=== PATIENT | female | born 1950 | race Caucasian/White ===

== ENCOUNTER 2022-04-24 15:55 | Outpatient (CLI) | payer MEDICARE, SELFPAY ==
--- NOTE | 2022-04-24 16:15 | CRLHL7_ITS ---
For Patients: As a result of the Century Cures Act, medical imaging exams and procedure reports are released immediately into your electronic medical record. You may view this report before your referring provider. If you have questions, please contact your health care provider. BILATERAL SCREENING MAMMOGRAM WITH COMPUTER-AIDED DETECTION AND TOMOSYNTHESIS TECHNIQUE: CC and MLO views were obtained. These mammographic images have been obtained using full-field digital technique. These mammographic images were interpreted with the benefit of computer-aided detection. Breast Tomosynthesis was used in this interpretation. COMPARISON FILM: 04/07/2021, 04/06/2020. FINDINGS: The breasts are heterogeneously dense, which may obscure small masses IMPRESSION: There is no radiographic evidence for malignancy. ASSESSMENT: BI-RADS Category 1: Negative RECOMMENDATION: Routine screening mammogram in 1 year. A lay language report of this examination will be provided to the patient. Aj Mari M.D. Diagnostic Radiologist [email or web address] MEAGHAN/Dictated by: Aj Mari MD @ 04/25/2022 9:31:00 AM (Electronically Signed)
== END 2022-04-24 15:56 | disposition home or self-care (01) ==
LOC: MAMMO 15:56
PROVIDERS: PCP Family Medicine; Visit Provider Family Medicine
DX: Z12.31 Encounter for screening mammogram for malignant neoplasm of breast (principal); R92.2 Inconclusive mammogram
CPT/HCPCS: 77063; 77067

== ENCOUNTER 2022-05-09 10:26 | Outpatient (CLI) | payer MEDICARE, SELFPAY ==
[2022-05-09 21:18] LABS: Albumin* 4.9 g/dL (3.3-5.0); Chloride* 102 mmol/L (96-114); Potassium* 4.7 mmol/L (3.6-5.1); Sodium* 140 mmol/L (135-149)
[2022-05-09 21:20] LABS: Bilirubin Total* 0.8 mg/dL (0.1-1.5); Carbon Dioxide* 25 mmol/L (20-32); Cholesterol* 177 mg/dL (90-199); Creatinine* 0.8 mg/dL (0.5-1.5); Estimated Glomerular Filt Rate 79 ml/min
[2022-05-09 21:21] LABS: Alanine Aminotransferase* 33 U/L (4-35); Alkaline Phosphatase* 86 U/L (40-150); Aspartate Amino Transferase* 36 U/L (12-35); Blood Urea Nitrogen* 20 mg/dL (7-30); Calcium* 9.8 mg/dL (8.4-10.6); Glucose* 100 mg/dL (60-115); Total Protein* 7.9 g/dL (6.0-8.3); Triglycerides* 132 mg/dL (40-149)
[2022-05-09 21:22] LABS: HDL Cholesterol* 61 mg/dL (>=50); LDL Cholesterol Calculated 90 mg/dL (<100)
[2022-05-09 23:33] LABS: Vitamin D 25 Hydroxy* 46 ng/mL (30-80)
== END 2022-05-09 10:27 | disposition home or self-care (01) ==
PROVIDERS: PCP Family Medicine; Visit Provider Physician Assistant Medical
DX: Z00.00 Encounter for general adult medical examination without abnormal findings (principal); E55.9 Vitamin D deficiency, unspecified; E78.5 Hyperlipidemia, unspecified; F41.9 Anxiety disorder, unspecified
CPT/HCPCS: 80053; 80061; 82306; 84443

== ENCOUNTER 2022-06-01 07:44 | Outpatient (CLI) | payer MEDICARE, SELFPAY ==
--- NOTE | 2022-06-01 08:59 | W.ANESCHARGE ---
Anesthesia Charges Start Date/Time Anesthesia Start Date: 06/01/22 Anesthesia Start Time: 08:30 Stop Date/Time Anesthesia Stop Date: 06/01/22 Anesthesia Stop Time: 09:00 Summary Emergency: No Extremes of Age: Over 71-CPT [id number]
--- NOTE | 2022-06-01 09:16 | W.ANESCHARGE ---
Anesthesia Charges Start Date/Time Anesthesia Start Date: 06/01/22 Anesthesia Start Time: 08:30 Stop Date/Time Anesthesia Stop Date: 06/01/22 Anesthesia Stop Time: 09:00 Summary Emergency: No
== END 2022-06-01 07:45 | disposition home or self-care (01) ==
LOC: OP CLINIC 07:44
PROVIDERS: PCP Internal Medicine; Visit Provider Internal Medicine
DX: Z12.11 Encounter for screening for malignant neoplasm of colon (principal); K63.5 Polyp of colon; K57.30 Diverticulosis of large intestine without perforation or abscess without bleeding; Z86.010 Personal history of colon polyps
CPT/HCPCS: 00811; 45380; 88305; 99100; J2704

== ENCOUNTER 2022-06-06 14:54 | Outpatient (CLI) | payer MEDICARE, SELFPAY ==
--- NOTE | 2022-06-06 15:00 | CRLHL7_ITS ---
For Patients: As a result of the Century Cures Act, medical imaging exams and procedure reports are released immediately into your electronic medical record. You may view this report before your referring provider. If you have questions, please contact your health care provider. DXA BONE MINERAL DENSITY STUDY Current height (in): 66.0. Weight (lb): 149.0. Menopause age: 46. Ethnicity: White. Reason for exam: Screening. History of osteopenia. 1. Have you had a previous hip or vertebral fracture? No. 2. Have you had any fractures during your adult life which did not result from significant trauma (e.g., auto accident)? No. 3. Did either of your parents have a hip fracture? No. 4. Do you smoke? No. 5. Have you ever taken Glucocorticoids? No. 6. Do you have rheumatoid arthritis? Yes. 7. Do you have secondary osteoporosis? No. 8. Do you drink 3 or more alcoholic drinks per day? No. 9. Are you being treated for osteoporosis? No. 10. Have you ever taken any of the following medications: Actonel, Evista, Fosamax, Miacalcin, Reclast, Boniva, Forteo, HRT (i.e. estrogen/hormone therapy), Protelos, Prolia, Vitamin D, Calcium, other ??? please specify. ANSWER: Yes, Fosamax, vitamin D, calcium. 11. Do you have any of the following medical conditions: Anorexia or bulimia, asthma or emphysema, end stage renal disease, hyperparathyroidism, any seizure disorders, cancer, inflammatory bowel diseases, hysterectomy, other ??? please specify. ANSWER: Yes, inflammatory bowel disease. 12. What was your maximum height (inches)? 66. 13. Do you perform weight bearing exercise regularly? Yes. 14. Do you regularly consume dairy products? Yes. 15. Do you drink caffeinated beverages? No. If female: 16. At what age did your period start? 17. 17. Are you premenopausal? No. 18. How many full term pregnancies have you had? 0. 19. Have you ever missed your period for more than 6 months in a row (not including or menopause)? No. TECHNIQUE: Bone mineral density study was performed using the [employer]. FINDINGS: The results of the study expressed as bone mineral density (BMD) are as follows: Lumbar spine L1 to L4: BMD: 1.032 g/cm2. T-score: -0.1. Z-score: 2.0. Neck Right: BMD: 0.778 g/cm2. T-score: -0.6. Z-score: 1.2. Total Right: BMD: 0.825 g/cm2. T-score: -1.0. Z-score: 0.6. Radius Left 33%: BMD: 0.690 g/cm2. T-score: -0.1. Z-score: 2.1. IMPRESSION: Normal bone density. Aj aMri M.D. Diagnostic Radiologist [email or web address] Transcribed: 9:56 [address] DW/Dictated by: Aj Mari MD @ 06/07/2022 8:57:00 AM (Electronically Signed)
== END 2022-06-06 14:55 | disposition home or self-care (01) ==
LOC: RAD 14:55
PROVIDERS: PCP Internal Medicine; Visit Provider Physician Assistant Medical
DX: Z13.820 Encounter for screening for osteoporosis (principal); Z78.0 Asymptomatic menopausal state; E55.9 Vitamin D deficiency, unspecified
CPT/HCPCS: 77080

== ENCOUNTER 2023-04-18 10:30 | Outpatient (RCR) | payer MEDICARE, SELFPAY | END 2023-08-16 23:59 | disposition home or self-care (01) | PROVIDERS: PCP Internal Medicine; Visit Provider Family Medicine | DX: M25.551 Pain in right hip (principal); M54.16 Radiculopathy, lumbar region; M48.061 Spinal stenosis, lumbar region without neurogenic claudication; M70.61 Trochanteric bursitis, right hip; M54.50 Low back pain, unspecified; M62.81 Muscle weakness (generalized); R26.2 Difficulty in walking, not elsewhere classified; Z51.89 Encounter for other specified aftercare | CPT/HCPCS: 97110; 97140; 97162 ==

== ENCOUNTER 2023-04-26 11:12 | Outpatient (CLI) | payer MEDICARE, SELFPAY ==
--- NOTE | 2023-04-26 11:30 | CRLHL7_ITS ---
For Patients: As a result of the Century Cures Act, medical imaging exams and procedure reports are released immediately into your electronic medical record. You may view this report before your referring provider. If you have questions, please contact your health care provider. BILATERAL SCREENING MAMMOGRAM WITH COMPUTER-AIDED DETECTION AND TOMOSYNTHESIS TECHNIQUE: CC and MLO views were obtained. These mammographic images have been obtained using full-field digital technique. These mammographic images were interpreted with the benefit of computer-aided detection. Breast Tomosynthesis was used in this interpretation. COMPARISON FILM: 04/24/22, 04/07/21, 04/06/20. FINDINGS: There are scattered areas of fibroglandular density IMPRESSION: There is no radiographic evidence for malignancy. ASSESSMENT: BI-RADS Category 1: Negative RECOMMENDATION: Routine screening mammogram in 1 year. A lay language report of this examination will be provided to the patient. Aj Mari M.D. Diagnostic Radiologist [email or web address] MEAGHAN/Dictated by: Aj Mari MD @ 04/26/2023 11:58:00 AM (Electronically Signed)
== END 2023-04-26 11:13 | disposition home or self-care (01) ==
LOC: MAMMO 11:13
PROVIDERS: PCP Internal Medicine; Visit Provider Physician Assistant Medical
DX: Z12.31 Encounter for screening mammogram for malignant neoplasm of breast (principal)
CPT/HCPCS: 77063; 77067

== ENCOUNTER 2023-06-18 10:30 | Outpatient (RCR) | payer MEDICARE, SELFPAY | END 2023-09-16 12:32 | disposition home or self-care (01) | PROVIDERS: PCP Internal Medicine; Visit Provider Nurse Practitioner | DX: M54.16 Radiculopathy, lumbar region (principal); M48.061 Spinal stenosis, lumbar region without neurogenic claudication; M70.61 Trochanteric bursitis, right hip; Z96.641 Presence of right artificial hip joint; M62.81 Muscle weakness (generalized); R26.2 Difficulty in walking, not elsewhere classified; M54.50 Low back pain, unspecified; Z51.89 Encounter for other specified aftercare | CPT/HCPCS: 97110; 97161 ==

== ENCOUNTER 2023-07-25 10:23 | Outpatient (CLI) | payer MEDICARE, SELFPAY | END 2023-07-25 10:24 | disposition home or self-care (01) | PROVIDERS: PCP Internal Medicine; Visit Provider Physician Assistant Medical | DX: Z00.00 Encounter for general adult medical examination without abnormal findings (principal); E78.5 Hyperlipidemia, unspecified; E55.9 Vitamin D deficiency, unspecified | CPT/HCPCS: 80053; 80061; 82306; 84443 ==

== ENCOUNTER 2023-09-19 10:54 | Outpatient (CLI) | payer MEDICARE, SELFPAY | END 2023-09-19 10:55 | disposition home or self-care (01) | LOC: RAD 10:55 | PROVIDERS: PCP Physician Assistant Medical; Visit Provider Physician Assistant Medical | DX: I51.7 Cardiomegaly (principal); I35.1 Nonrheumatic aortic (valve) insufficiency; I34.0 Nonrheumatic mitral (valve) insufficiency | CPT/HCPCS: 93306 ==

== ENCOUNTER 2024-01-20 22:21 | Outpatient (REF) | payer MEDICARE, SELFPAY | END 2024-01-20 22:22 | disposition home or self-care (01) | LOC: NPINS 22:21 | PROVIDERS: PCP Physician Assistant Medical; Visit Provider Family Medicine | DX: Z11.9 Encounter for screening for infectious and parasitic diseases, unspecified (principal); Z01.818 Encounter for other preprocedural examination | CPT/HCPCS: 87081 ==

== ENCOUNTER 2024-01-30 10:45 | Outpatient (RCR) | payer MEDICARE, SELFPAY | END 2024-01-30 11:27 | disposition home or self-care (01) | PROVIDERS: PCP Physician Assistant Medical; Visit Provider Orthopaedic Surgery | DX: M70.61 Trochanteric bursitis, right hip (principal); M70.62 Trochanteric bursitis, left hip; Z51.89 Encounter for other specified aftercare | CPT/HCPCS: 97110; 97140; 97162 ==

== ENCOUNTER 2024-03-10 12:30 | Outpatient (RCR) | payer MEDICARE, SELFPAY | END 2024-07-08 23:59 | disposition home or self-care (01) | PROVIDERS: PCP Physician Assistant Medical; Visit Provider Orthopaedic Surgery | DX: Z01.818 Encounter for other preprocedural examination (principal); M17.12 Unilateral primary osteoarthritis, left knee; Z51.89 Encounter for other specified aftercare | CPT/HCPCS: 97110; 97112; 97162 ==

== ENCOUNTER 2024-04-25 10:56 | Emergency (ER) | payer MEDICARE, SELFPAY ==
[2024-04-25 11:08] VITALS: BP 132/78; PULSE 104; RESP 16; TEMP 36.8; O2SAT 96; BMI 24.2
--- NOTE | 2024-04-25 11:37 | ED_ITS ---
HPI - General Adult General Chief complaint: Ear/Nose/Throat Problem Stated complaint: Sinus infection Time Seen by Provider: 04/25/24 11:15 Source: patient Mode of arrival: ambulatory Limitations: no limitations History of Present Illness HPI narrative: 71-year-old female presents the emergency department with 5 days of ?sinus infection?. No fevers. Thickening of mucus this morning. Has not tried any leum-vjn-puxfadc treatments. Reports that she was at a family event 2 days prior to symptoms starting and a preschool age child had a ?snotty nose?. Mother had similar symptoms and was preparing food. Patient suspects this may have been how she had the illness transmitted to her. Patient's had similar symptoms that started the same day as hers and are starting to resolve. Patient reports that she tends to get sinus infections frequently but the last was about a year ago. She is not immunocompromised. She says that she used to get them more frequently but less often now. No recent use of antibiotics. No pertinent travel. She is not immunocompromised. No other systemic symptoms like GI changes, shortness of breath, chest congestion. No trauma or injury, no prior history of sinus surgeries. Past medical history is notable for osteopenia, low back pain, hyperlipidemia. Medications reviewed, accurate. Allergy to cephalosporins, not penicillins. Nonsmoker. ROS is notable for a little bit of your pressure in the sinus symptoms as described above, otherwise denies times 12 systems. Related Data Home Medications ?Medication ?Instructions ?Recorded ?Confirmed ascorbic acid (vitamin C) 1,000 mg 1 g PO Q6H 05/09/22 01/20/24 tablet cholecalciferol (vitamin D3) 125 125 mcg PO QDAY 05/09/22 01/20/24 mcg (5,000 unit) capsule multivitamin with iron (Daily 2 tab PO QDAY 05/09/22 01/20/24 Multiple Vitamins with Iron tablet) Previous Rx's ?Medication ?Instructions ?Recorded rosuvastatin 10 mg tablet 10 mg PO QDAY #90 tabs 07/26/23 gabapentin 300 mg capsule 300 mg PO 3XD #270 caps 03/09/24 amoxicillin 875 mg-potassium 1 tab PO BID #20 tabs 04/25/24 clavulanate 125 mg tablet ipratropium bromide 21 mcg (0.03 2 spray intranasal TID #30 mL 04/25/24 %) nasal spray prednisone 20 mg tablet 20 mg PO DAILY #5 tabs 04/25/24 Allergies Allergy/AdvReac Type Severity Reaction Status Date / Time Cephalosporins Allergy Mild Itch Verified 04/25/24 11:08 cefuroxime Allergy Unknown Verified 04/25/24 11:08 [facility] Medical History History of stress test ?Z92.89 - Personal history of other medical treatment (ICD-10) Surgical History History of right hip replacement ?Z96.641 - Presence of right artificial hip joint (ICD-10) Status post carpal tunnel release of both wrists (08/05/09) ?Z98.890 - Other specified postprocedural states (ICD-10) Polyp of descending colon (12/05/16) ?K63.5 - Polyp of colon (ICD-10) History of total hip replacement ?Z96.649 - Presence of unspecified artificial hip joint (ICD-10) History of repair of rotator cuff ?Z98.890 - Other specified postprocedural states (ICD-10) History of colonoscopy ?Z98.890 - Other specified postprocedural states (ICD-10) History of carpal tunnel release of both wrists ?Z98.890 - Other specified postprocedural states (ICD-10) Family History Mother Brain aneurysm Sister Breast cancer Father Stroke Diabetes High blood pressure Other Cancer of kidney Social History Narrative: What is your current living situation?: I presently have a place to live Problems where you live: no known problems In the past 12 months, utilities in danger of being shut off: no In past 12 months, lack of transportation kept you from medical appts, meetings, work, or getting things needed for daily living: no In the past 12 mos, have been you worried that your food would run out before you had money to buy more?: never true In the past 12 mos, the food you bought just didn't last and you didn't have money to buy more?: never true Smoking Status: Never smoker How often do you have a drink containing alcohol: never AUDIT-C Alcohol total score: 0 Non-prescribed substance use: denies use How often does anyone, including family, friends and others, physically hurt you : never How often does anyone, including family, friends and others, insult or talk down to you: never How often does anyone, including family, friends and others, threaten you with harm: never How often does anyone, including family, friends and others, scream or curse at you: never Little interest or pleasure in doing things: not at all Feeling down, depressed, or hopeless: not at all Exam Const: Vital Signs, click to edit/add: Vital Signs - 24 hr 04/25/24 11:08 Temperature 98.3 F Pulse Rate [Pulse Oximeter] 104 H Respiratory Rate 16 Blood Pressure [Le ft Upper Arm] 132/78 Pulse Oximetry 96 Oxygen Delivery Me thod Room Air Documenting provider has reviewed patient's vital signs: yes Common normals: no apparent distress General appearance: cooperative and well kempt HENMT: Common normals: normocephalic and TM's normal bilaterally Head and scalp: normocephalic Tympanic membrane: TM's normal bilaterally Other: Mild postnasal drip noted with no significant swelling to the pharynx. Nose congested with erythematous mucosa and thick mucopurulent drainage right greater than left. Mild sinus tenderness on palpation. Eye: Common normals: conjunctivae normal General eye: normal appearance of both eyes Conjunctiva: conjunctiva(e) normal Neck & C-Spine: Common normals: no lymphadenopathy General: normal visual inspection Resp: Common normals: normal respiratory effort, no use of accessory muscles and clear to auscultation bilaterally Effort & inspection: able to speak in complete sentences Auscultation: clear to auscultation bilaterally Cardio: Common normals: regular rate, regular rhythm, S1 normal heart sound, S2 normal heart sound and no murmurs Rate: regular rate Rhythm: regular rhythm Heart sounds: S1 normal and S2 normal Psych: Appearance: well kempt Attitude: engaged Mood and affect: euthymic mood Skin: Common normals: no rashes or lesions noted General skin exam: no rashes or lesions noted Course Course ED Course: 73-year-old female with sinusitis but no evidence that this is bacterial. Likely transmitted by another person with close contact, spells with similar symptoms, lack of fever really pushes away from a bacterial diagnosis. Patient was counseled on this. She initially had some pushback that was accepting after a thorough explanation understanding of viral a G and also how the anti- inflammatory effect of many antibiotics causes you to feel significantly better and history of antibiotic use for sinusitis may be was not 1 of our greatest medical achievement especially tender 20 years ago. Counseled that these guidelines are not new. I do not recommend antibiotics unless you have been symptomatic a minimum of 14 days and honestly 21 days is probably better. Instead, we talked about symptom management with prednisone 20 mg once daily for 5 days and ipratropium nasal spray. She did home COVID test and says that it was negative I encouraged her to repeat this if not improving within a couple of days. I did offer her a postdated script for Augmentin for 2 weeks from onset of illness which will be 9 days from now. I sent this to her pharmacy. She will pick this up on the only if her symptoms are not improving as expected. Your symptoms do not resolve 2 weeks after starting the antibiotic, she should be evaluated in the primary care office. Alarm symptoms reviewed that would warrant ED presentation. Okay to use xolc-hrq-lzchaml treatments as well. Vital Signs Vital signs: Initial Vital Signs Temperature 98.3 F 04/25/24 11:08 Temperature Source Temporal Artery Scan 04/25/24 11:08 Pulse Rate 104 H 04/25/24 11:08 Respiratory Rate 16 04/25/24 11:08 Blood Pressure 132/78 04/25/24 11:08 Blood Pressure Mean 96 04/25/24 11:08 Blood Pressure Position High-Fowlers 04/25/24 11:08 Pulse Oximetry 96 04/25/24 11:08 Oxygen Delivery Method Room Air 04/25/24 11:08 Vital Signs Temperature 98.3 F 04/25/24 11:08 Pulse Rate 104 H 04/25/24 11:08 Respiratory Rate 16 04/25/24 11:08 Blood Pressure 132/78 04/25/24 11:08 Pulse Oximetry 96 04/25/24 11:08 Oxygen Delivery Method Room Air 04/25/24 11:08 Temperature 98.3 F 04/25/24 11:08 Pulse Rate 104 H 04/25/24 11:08 Respiratory Rate 16 04/25/24 11:08 Blood Pressure 132/78 04/25/24 11:08 Pulse Oximetry 96 04/25/24 11:08 Oxygen Delivery Method Room Air 04/25/24 11:08 Discharge Plan Discharge Clinical Impression: Sinusitis Patient Disposition: Home, Self-Care Condition: Stable Instructions: Sinusitis (ED) Additional Instructions: As we discussed, you do have evidence of a sinus infection. The guidelines clearly talus that this is far more likely to be caused by a virus any bacteria at this stage of illness. The fact that was transmitted by another person, your spouse had similar symptoms, there was no high fever and you have the typical time line progression for a viral illness really does fit this thinking as well. Bacterial infections do not spread that way. As we also discussed, antibiotics are not indicated before 14 days of illness. Because of this, I am willing to postdate a prescription for 14 days from the onset of your illness. If you have not improved with the other interventions, you may fill the antibiotic and take it as prescribed. Remember that antibiotics for sinus infections are only about 60-70% effective and you would follow-up with a primary care provider if your symptoms have not resolved 2 weeks after starting the antibiotic. Antibiotics are highly likely to cause yeast infections and diarrhea, you may manage no side effects with whmz-ere-ycdqwyn treatments. As we discussed, it is often the anti-inflammatory effect of antibiotics that actually make you feel better, especially with sinus infections. Because of this, I instead recommended anti-inflammatory approach. We will give prednisone 20 mg once daily for the next 5 days. I recommend you take this early in the day as it can cause insomnia if taken to late at night. I like this with a combination of ipratropium nasal spray 1 spray in each nostril 3 times daily to help thin the mucus and allow things to better drain. If after that treatment course, things have not sufficiently improved, order picker the antibiotic as we discussed and start taking it. Any severe fever, neurological changes, severe headache associated with a sinus infection would warrant ED evaluation. You are safe to be around others. Activity Level: No Restrictions Discharge Diet: Regular Prescriptions: New prednisone 20 mg tablet 20 mg PO DAILY Qty: 5 0RF ipratropium bromide 21 mcg (0.03 %) spray,non-aerosol 2 spray intranasal TID Qty: 30 1RF Rx Instructions: administer into each nostril amoxicillin-pot clavulanate 875-125 mg tablet 1 tab PO BID Qty: 20 0RF Rx Instructions: Do not fill until 05/04. No Action multivitamin with iron [Daily Multiple Vitamins/Iron] Tablet 2 tab PO QDAY cholecalciferol (vitamin D3) 125 mcg (5,000 unit) capsule 125 mcg PO QDAY ascorbic acid (vitamin C) 1,000 mg tablet 1 g PO Q6H rosuvastatin 10 mg tablet 10 mg PO QDAY Qty: 90 3RF gabapentin 300 mg capsule 300 mg PO 3XD Qty: 270 1RF Follow Up/Referrals: Linda Gay PA-C [Primary Care Provider] - [facility]
--- NOTE | 2024-04-25 12:15 | ED.NURSE ---
pharmacist called about pt Rx. pharmacist was hoping to switch pt nasal spray from 2 puffs of the 0.03% for 1 puff of the 0.06% due to supply issue. notified and gave verbal authorization for the RX change.
--- NOTE | 2024-05-04 11:09 | ED.NURSE ---
Pt called and stated that the pharmacist said she should have a different prescription than the Augmentin because of her Ceftin allergy. Discussed with Dr. Howell and Dr. Howell will switch prescription to Doxycyline. [facility]oxycycline 100 mg BID x [facility] [place] Patient contacted and aware prescription called in.
== END 2024-04-25 12:01 | disposition home or self-care (01) ==
PROVIDERS: Emergency Provider Family Medicine; PCP Physician Assistant Medical
DX: J32.9 Chronic sinusitis, unspecified (principal)
CPT/HCPCS: 99283

== ENCOUNTER 2024-12-11 10:20 | Outpatient (CLI) | payer MEDICARE, SELFPAY | END 2024-12-11 10:21 | disposition home or self-care (01) | LOC: NFLDREF 12-17 15:50 | PROVIDERS: PCP Physician Assistant Medical; Referring Provider Physician Assistant Medical; Visit Provider Physician Assistant Medical | DX: E78.2 Mixed hyperlipidemia (principal); E55.9 Vitamin D deficiency, unspecified; E03.9 Hypothyroidism, unspecified | CPT/HCPCS: 80053; 80061; 82306; 84439; 84443 ==

== ENCOUNTER 2025-03-15 10:03 | Outpatient (CLI) | payer MEDICARE, SELFPAY | END 2025-03-15 10:04 | disposition home or self-care (01) | LOC: NFLDREF 03-17 02:07 | PROVIDERS: PCP Physician Assistant Medical; Referring Provider Physician Assistant Medical; Visit Provider Physician Assistant Medical | DX: E03.9 Hypothyroidism, unspecified (principal) | CPT/HCPCS: 84443 ==

== ENCOUNTER 2025-04-28 14:27 | Outpatient (CLI) | payer MEDICARE, SELFPAY ==
--- NOTE | 2025-04-28 14:40 | CRLHL7_ITS ---
For Patients: As a result of the Century Cures Act, medical imaging exams and procedure reports are released immediately into your electronic medical record. You may view this report before your referring provider. If you have questions, please contact your health care provider. INDICATION: BILATERAL SCREENING MAMMOGRAM, ASYMPTOMATIC 74 Y/O FEMALE COMPARISON: 04/26/2023, 04/24/2022, 04/07/2021 TECHNIQUE: Digital mammogram in CC and MLO projections including computer-aided detection (CAD) and tomosynthesis. BREAST COMPOSITION: There are scattered areas of fibroglandular density. FINDINGS: No suspicious findings. ASSESSMENT: BI-RADS 1 Negative RECOMMENDATION: Annual screening mammogram. A lay language report of this examination will be provided to the patient. Dictated by: Marni Rodrigues MD @ 04/28/2025 19:51:17 (Electronically Signed)
== END 2025-04-28 14:28 | disposition home or self-care (01) ==
LOC: MAMMO 14:28
PROVIDERS: PCP Physician Assistant Medical; Visit Provider Physician Assistant Medical
DX: Z12.31 Encounter for screening mammogram for malignant neoplasm of breast (principal)
CPT/HCPCS: 77063; 77067

== ENCOUNTER 2025-05-05 14:45 | Outpatient (CLI) | payer MEDICARE, SELFPAY ==
--- NOTE | 2025-05-05 15:00 | CRLHL7_ITS ---
For Patients: As a result of the Century Cures Act, medical imaging exams and procedure reports are released immediately into your electronic medical record. You may view this report before your referring provider. If you have questions, please contact your health care provider. XR DXA Bone Mineral Density (BMD) Reason for exam: Screening. Current height (inches): 66.0 Weight (lbs.): 149.0 Menopause age: 46 Ethnicity: White 1. Have you had a previous hip or vertebral fracture? No. 2. Have you had any fractures during your adult life which did not result from significant trauma (e.g., auto accident)? No. 3. Did either of your parents have a hip fracture? No. 4. Do you smoke? No. 5. Have you ever taken Glucocorticoids? Yes. 6. Do you have rheumatoid arthritis? Yes. 7. Do you have secondary osteoporosis? No. 8. Do you drink 3 or more alcoholic drinks per day? No. 9. Are you being treated for osteoporosis? No. 10. Have you ever taken any of the following medications: Actonel, Evista, Fosamax, Miacalcin, Reclast, Boniva, Forteo, HRT (i.e., estrogen/hormone therapy), Protelos, Prolia, Vitamin D, Calcium, other ??? please specify. ANSWER: Yes; Fosamax, HRT, vitamin D, calcium. 11. Do you have any of the following medical conditions: Anorexia or bulimia, asthma or emphysema, end stage renal disease, hyperparathyroidism, any seizure disorders, cancer, inflammatory bowel diseases, hysterectomy, other ??? please specify. ANSWER: Yes; Inflammatory bowel disease. 12. What was your maximum height (inches)? 66. 13. Do you perform weightbearing exercise regularly? No. 14. Do you regularly consume dairy products? No. 15. Do you drink caffeinated beverages? Yes. 16. At what age did your period start? 17. 17. Are you premenopausal? No. 18. How many full-term pregnancies have you had? 0. 19. Have you ever missed your period for more than 6 months in a row (not including or menopause)? No. TECHNIQUE: Bone mineral density study was performed using the [employer]. FINDINGS: The results of the study expressed as bone mineral density (BMD) are as follows: Lumbar Spine L1 to L4: BMD: 1.057 g/cm2. T-score: 0.1. Z-score: 2.4. Radius Left 33%: BMD: 0.689 g/cm2. T-score: -0.1. Z-score: 2.3. IMPRESSION: Normal bone density. AJ ADAMS M.D. Diagnostic Radiologist [email or web address] Transcribed: 9:[address]/Dictated by: Aj Adams MD @ 05/06/2025 9:22:00 AM (Electronically Signed)
== END 2025-05-05 14:46 | disposition home or self-care (01) ==
LOC: RAD 14:45
PROVIDERS: PCP Physician Assistant Medical; Visit Provider Physician Assistant Medical
DX: Z13.820 Encounter for screening for osteoporosis (principal)
CPT/HCPCS: 77080

== ENCOUNTER 2025-06-25 11:00 | Outpatient (CLI) | payer MEDICARE, SELFPAY | END 2025-06-25 11:01 | disposition home or self-care (01) | LOC: NFLDREF 06-26 17:52 | PROVIDERS: PCP Physician Assistant Medical; Referring Provider Physician Assistant Medical; Visit Provider Physician Assistant Medical | DX: E03.9 Hypothyroidism, unspecified (principal); E55.9 Vitamin D deficiency, unspecified; R53.83 Other fatigue | CPT/HCPCS: 82306; 82607; 82728; 84443 ==